=== PATIENT | male | born 1970 | race Caucasian/White ===

== ENCOUNTER 2024-03-12 06:15 | Day surgery (SDC) | payer OTHER, SELFPAY | END 2024-03-12 09:02 | disposition home or self-care (01) | LOC: GI 06:15 | PROVIDERS: ATTENDING PHYSICIAN Internal Medicine | DX: Z12.11 Encounter for screening for malignant neoplasm of colon (principal); D12.3 Benign neoplasm of transverse colon; K63.5 Polyp of colon; K64.8 Other hemorrhoids | CPT/HCPCS: 45385; 45380; 88305 ==

== ENCOUNTER → 2024-06-12 07:03 | Outpatient (REF) | payer OTHER, SELFPAY | LOC: HWRAD 07:03 | PROVIDERS: ATTENDING PHYSICIAN Internal Medicine | DX: E04.1 Nontoxic single thyroid nodule (principal); R63.4 Abnormal weight loss | CPT/HCPCS: 76536 ==

== ENCOUNTER → 2024-06-27 07:27 | Outpatient (REF) | payer OTHER, SELFPAY ==
[2024-06-27 07:56] VITALS: BP 113/67; BP_SYST 84
== END ==
LOC: RADI 07:27
PROVIDERS: ATTENDING PHYSICIAN Internal Medicine
DX: C73 Malignant neoplasm of thyroid gland (principal)
CPT/HCPCS: 88173; 10005

== ENCOUNTER 2024-08-28 08:51 | Inpatient (IN) | payer OTHER, SELFPAY ==
[2024-08-21 11:25] LABS: Hematocrit 43.7 % (39.0-52.0); Hemoglobin 15.4 g/dL (13.0-18.0); Mean Corp Hgb Conc. 35.2 g/dL (33.0-37.0); Mean Corpuscular Hgb 30.1 pg (27.0-31.0); Mean Corpuscular Volume 85.4 fL (80.0-94.0); Mean Platelet Volume 8.7 fL (7.4-10.4); Platelet Count 209 10^3/uL (130-400); Red Blood Cell Count 5.12 10^6/uL (4.70-6.10); Red Cell Dist. Width 12.4 % (11.5-14.5); White Blood Cell Count 4.9 10^3/uL (4.8-10.8)
[2024-08-21 11:34] LABS: APTT 26.1 Sec (23.4-35.0); PT 12.5 Sec (11.4-14.6)
[2024-08-21 12:50] LABS: ALT (SGPT) 34 U/L (0-50); AST (SGOT) 26 U/L (17-59); Albumin 5.2 g/dl (3.5-5.0); Alkaline Phosphatase 65 U/L (38-126); Blood Urea Nitrogen 14 mg/dl (9-20); Calcium 9.6 mg/dl (8.4-10.2); Carbon Dioxide 24 mmol/L (22-30); Chloride 106 mmol/L (98-107); Glucose 91 mg/dl (70-99); Potassium 4.3 mmol/L (3.5-5.1); Sodium 142 mmol/L (135-145); Total Bilirubin 1.1 mg/dl (0.2-1.3); Total Protein 7.7 g/dl (6.3-8.2); eGFR > 60.00
[2024-08-21 14:06] VITALS: BMI 23.2
[2024-08-28] VITALS (15 sets, daily range): BP systolic 109–129; BP diastolic 70–87; BMI 23.2
[2024-08-28] MEDS: NORMOSOL-R/PLASMALYTE-A 1000 IV (09:07)
[2024-08-28] MEDS: HEPARIN 5000 UNITS SC (09:08)
[2024-08-28] MEDS: NEURONTIN 300 MG PO (09:08)
[2024-08-28] MEDS: TYLENOL 1000 MG PO (09:08)
--- NOTE | 2024-08-28 11:57 | OR.RPT ---
Operative Report
Operative Report
DATE OF OPERATION: August 28, 2024
PREOPERATIVE DIAGNOSIS: Thyroid Cancer - C73
POSTOPERATIVE DIAGNOSIS: Same
SURGEON: Jose Alberto Barron M.D.
OPERATION: Total Thyroidectomy and Neck Dissection - 53713
ANESTHESIA: GET
ESTIMATED BLOOD LOSS: 5 cc
DRAINS: None
SPECIMEN: total thyroid and right level 6 paratracheal tissue
FINDINGS: right-sided isthmic thyroid tumor and right level 6 paratracheal tissue
COMPLICATIONS: None
PROCEDURE:
The patient was taken to the operating room and placed in the usual supine position. After adequate general endotracheal anesthesia was established, the patient�s neck was extended, prepped, and draped in the typical sterile fashion. A 4 cm
transcervical incision was made two fingerbreadths above the sternal notch. The skin incision was made with the #15 blade, which was taken through the skin into the subcutaneous tissue. The underlying platysma muscle was divided, and subplatysmal
flaps were created superiorly to the thyroid cartilage and inferiorly to the sternal notch. The strap muscles were identified and at the midline.
Attention was turned to the patient�s left thyroid lobe. The left thyroid lobe was mobilized medially. During this process, the left middle thyroid vein and inferior thyroid artery were dissected and ligated with Ligasure. Next, the left superior
pole was taken down by dissecting and transecting the superior pole vessels with a Ligasure. The left thyroid lobe was mobilized medially. During this process, the left recurrent laryngeal nerve was identified and preserved throughout its entire
course. The left superior and inferior parathyroid glands were identified and preserved. The left thyroid lobe with isthmus was resected off the trachea and sent to the pathology department.
Attention was turned to the patient�s right thyroid lobe. The right thyroid lobe was mobilized medially. During this process, the right middle thyroid vein and inferior thyroid artery were dissected and ligated with Ligasure. Next, the right
superior pole was taken down by dissecting and transecting the superior pole vessels with a Ligasure. The right thyroid lobe was mobilized medially. During this process, the right recurrent laryngeal nerve was identified and preserved throughout its
entire course. The right inferior parathyroid gland was identified and preserved. The right thyroid lobe with isthmus was resected off the trachea and sent to the pathology department.
At this time, the right neck dissection was performed. The tissue between the right carotid artery to the trachea into the anterior mediastinum was carefully dissected. The previously identified recurrent laryngeal nerve and parathyroid glands were
preserved. However, the right superior parathyroid gland was noted in the right level 6 paratracheal tissue specimen, which was dissected out, minced, and autotransplanted in the right SCM muscle. The remaining tissue was removed and sent to the
pathology department.
After obtaining adequate hemostasis, the strap muscle was approximated with #3-0 Vicryl in a running fashion, and platysma muscles were reapproximated with #3-0 Vicryl in an interrupted fashion, and the skin was approximated with #4-0 Monocryl in a
running subcuticular fashion. Steri-strips and sterile dressings were placed. The patient tolerated the procedure well. The final instrument, needle, and sponge counts were correct.
[2024-08-28] MEDS: SUBLIMAZE 50 MCG IV ×3 (12:23→13:36)
[2024-08-28] MEDS: D5/0.9% SODIUM CHLORIDE 1000 IV (15:19)
[2024-08-28 15:55] LABS: ALT (SGPT) 27 U/L (0-50); AST (SGOT) 31 U/L (17-59); Albumin 4.6 g/dl (3.5-5.0); Alkaline Phosphatase 72 U/L (38-126); Blood Urea Nitrogen 14 mg/dl (9-20); Calcium 8.7 mg/dl (8.4-10.2); Carbon Dioxide 25 mmol/L (22-30); Chloride 105 mmol/L (98-107); Estimated Creatinine Clearance > 125 ml/min; Glucose 117 mg/dl (70-99); Potassium 4.7 mmol/L (3.5-5.1); Sodium 139 mmol/L (135-145); Total Protein 7.2 g/dl (6.3-8.2); eGFR > 60.00
[2024-08-28] MEDS: TYLENOL 650 MG PO ×2 (17:09→20:23)
[2024-08-28] MEDS: ROXICODONE 5 MG PO (17:59)
[2024-08-28] MEDS: PRAVACHOL 40 MG PO (23:05)
[2024-08-28] MEDS: PEPCID 20 MG PO (23:05)
[2024-08-28] MEDS: TORADOL 10 MG IV (23:07)
[2024-08-29] MEDS: TYLENOL PO ×2 (00:17→05:27)
[2024-08-29 03:15] VITALS: BP 114/66
[2024-08-29] MEDS: D5/0.9% SODIUM CHLORIDE 1000 IV (05:27)
[2024-08-29] MEDS: SYNTHROID 137 MCG PO (05:28)
[2024-08-29] MEDS: TYLENOL 650 MG PO ×2 (05:48→11:35)
[2024-08-29 07:55] VITALS: BP 131/82
[2024-08-29 08:08] LABS: ALT (SGPT) 24 U/L (0-50); AST (SGOT) 22 U/L (17-59); Albumin 4.5 g/dl (3.5-5.0); Alkaline Phosphatase 58 U/L (38-126); Blood Urea Nitrogen 11 mg/dl (9-20); Calcium 8.5 mg/dl (8.4-10.2); Carbon Dioxide 24 mmol/L (22-30); Chloride 105 mmol/L (98-107); Estimated Creatinine Clearance > 125 ml/min; Glucose 134 mg/dl (70-99); Potassium 4.1 mmol/L (3.5-5.1); Sodium 138 mmol/L (135-145); Total Bilirubin 0.8 mg/dl (0.2-1.3); Total Protein 6.9 g/dl (6.3-8.2); eGFR > 60.00
--- NOTE | 2024-08-29 09:19 | CM ---
CM reviewed medical records. Patient is independent with all needs. Patient lives with .
PLAN: home no needs.
--- NOTE | 2024-08-29 14:14 | W.DS.TRANS ---
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
-
Discharge Instructions:
Discharge Diagnosis/Procedures Thyroid cancer
Diet Regular
Activity As tolerated,No strenuous activity
Driving Restrictions no driving for 4-5 days
Bathing Restrictions OK to Shower
Instructions:
Stand-Alone Forms:
Changes to Home Medications: Yes
Discharge Medications:
DC Medications w/original date entered in [employer]
cholecalciferol (vitamin D3) 125 mcg (5,000 unit) tablet 1,000 unit PO HS 06/21/12
pravastatin 40 mg tablet 40 mg PO HS 06/21/12
escitalopram oxalate 5 mg tablet (Lexapro) 5 mg PO HS 06/27/24
famotidine 20 mg tablet 20 mg PO HS 06/27/24
lysine 500 mg capsule 500 mg PO 1XD 08/28/24
Home Medication Changes
Pending Results: No
== END 2024-08-29 15:15 | disposition home or self-care (01) | DRG 627 ==
LOC: 2 SOUTH 08:51
PROVIDERS: ADMITTING PHYSICIAN Surgery; FAMILY PHYSICIAN Internal Medicine
PROC: 07T10ZZ Resection of Right Neck Lymphatic, Open Approach (ICD-10-PCS; 2024-08-28)
PROC: 0GTK0ZZ Resection of Thyroid Gland, Open Approach (ICD-10-PCS; 2024-08-28)
DX: C73 Malignant neoplasm of thyroid gland (principal)
CPT/HCPCS: 88307; 88311; 36415; 80053; 85027; 85610; 85730; 93005; C1776

== ENCOUNTER → 2024-10-24 15:34 | Outpatient (REF) | payer BC, SELFPAY ==
[2024-10-26 16:19] LABS: Thyroglobulin 0.3 ng/mL (1.3-31.8); Thyroglobulin Antibodies <1.5 IU/mL (0.0-4.0)
== END ==
LOC: REG 15:34
PROVIDERS: ATTENDING PHYSICIAN Internal Medicine Endocrinology, Diabetes & Metabolism; FAMILY PHYSICIAN Internal Medicine
DX: C73 Malignant neoplasm of thyroid gland (principal)
CPT/HCPCS: 36415; 84432; 86800

== ENCOUNTER 2024-12-29 15:34 | Inpatient (IN) | payer BC, SELFPAY ==
[2024-12-29] VITALS (9 sets, daily range): BP systolic 110–151; BP diastolic 61–95; BMI 25.6; BMI 24.5
[2024-12-29 09:26] LABS: Glucose - Point of Care 99 mg/dl (70-99)
--- NOTE | 2024-12-29 09:46 | ED.CVA ---
History of Present Illness
<FER Ortiz - Last Filed: 12/29/24 14:25>
General
Chief Complaint: CVA/TIA Symptoms
Source: other (Friend)
Exam Limitations: none
Time Seen by Provider: 12/29/24 09:33
Nursing documentation reviewed up to this point in time: agreed with
Onset of Stroke Symptoms
Onset of symptoms known: No
Time pt last seen normal is known: No
History of Present Illness
History of Present Illness:
Patient is a 54-year-old male brought by friend for change mental status. Friend reports patient was in a cold plunge at 60 degree temperature for 7 minutes at his house. Friend reports about 5 minutes after patient was confused asking strange
questions could not remember things. Patient presents still confused. He is awake alert he is able to answer questions but does not remember getting out of the cold plunge or getting dressed. He is confused to the year, date of month.
He denies any headache. I did speak to over over the phone who is on her way. He does have a history of thyroid cancer and had thyroid removed this summer by Dr. Jose Alberto Barron. He is scheduled for radioactive iodine therapy this week. does
report patient has a history of SVT yrs ago and has anxiety and takes antianxiety medicine she believes only at nighttime.
Past History
<FER Ortiz - Last Filed: 12/29/24 14:25>
Past History
ED Past Medical History: Hypercholesterolemia and Other (sleep apnea (Nuvigil))
ED Past Surgical History: Tonsilectomy
Social History
Tobacco: Former smoker
Alcohol: Occasional
Drug: None
Personal:
Living: with family
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
Phy Exam
<FER Ortiz - Last Filed: 12/29/24 14:25>
General Physical Exam
General Presentation: no apparent distress
General age: appears stated age
General Skin: warm and dry
General Habitus: normal
General Mental: tearful
General Hydration: appears well hydrated
Cardiovascular Exam
Cardiovascular Exam: regular rate/rhythm, no murmur and normal peripheral pulses
Pulmonary Exam
Pulmonary Exam: lungs clear and no respiratory distress
Neurological Exam
Neurological Exam: alert, oriented x3, no motor deficits, no sensory deficits and speech normal
[place] Coma Scale
Eye Opening: Spontaneous
Verbal Response: Confused
Motor Response: Obeys Commands
GCS Total Score: 14
Musculoskeletal Exam
Musculoskeletal Exam: full ROM
Skin Exam
Skin Exam: normal color and warm/dry
Psychiatric Exam
Psychiatric Exam: normal mood/affect
Course
<FER Ortiz - Last Filed: 12/29/24 14:25>
Orders/Labs/Results
Orders:
Orders
12/29/24 09:45
Electrocardiogram (*1) Stat
Reason for Study: Other
Other Reason for Exam: neuro symptoms
CT Head W/o Iv Contrast Urgent
Comment:
Reason For Exam: sudden change in ms
Cardiac Monitoring- Treatment ONCE
EKG- Treatment ONCE
12/29/24 09:48
Complete Blood Count/With Diff Urgent
Comprehensive Metabolic Panel Urgent
TSH Reflex To Free T4 Urgent
12/29/24 10:55
PSYCHIATRY CONSULT Urgent
Consulting Provider: Luly Liu
Was physician already notified: Yes
12/29/24 11:51
Drug Screen, Urine [Urine Drug Abuse Screen] Urgent
Date Specimen was Collected: 12/29/24
Time Specimen was Collected: 11:50
UA Reflex to Culture [Urinalysis Reflex To Culture] Urgent
Date Specimen was Collected: 12/29/24
Time Specimen was Collected: 11:50
Urine Microscopic Reflex Cult Urgent
12/29/24 12:13
0.9% Sodium Chloride 1000 ml [Nss] 1,000 ml IV BOLUS
Abnormal Lab Results
12/29/24 12/29/24
09:48 11:51
Albumin 5.1 H g/dl
(3.5-5.0)
Urine Ketones 2+ A
(Negative)
Urine Bacteria (Reflex) Few A
(Negative)
Urine Albumin (Reflex) 1+ A
(Neg - Trace)
12/29/24 09:48
12/29/24 09:48
Vital Signs
Initial and Last Documented VS:
Initial Vital Signs
Temp Pulse Resp BP Pulse Ox
98.4 F 69 16 146/95 100
12/29/24 09:21 12/29/24 09:21 12/29/24 09:21 12/29/24 09:21 12/29/24 09:21
Last Documented Vital Signs
Temp Pulse Resp BP Pulse Ox
98.4 F 74 14 135/89 99
12/29/24 09:21 12/29/24 13:00 12/29/24 13:00 12/29/24 12:00 12/29/24 13:00
Commercial Announcer consulted with Physician
Commercial Announcer consulted with physician?: Yes
Name of Physician Consulted: Gin
<Rohit Greenfield, DO - Last Filed: 12/29/24 10:48>
Orders/Labs/Results
Orders:
Orders
12/29/24 09:45
Electrocardiogram (*1) Stat
Reason for Study: Other
Other Reason for Exam: neuro symptoms
CT Head W/o Iv Contrast Urgent
Comment:
Reason For Exam: sudden change in ms
Cardiac Monitoring- Treatment ONCE
EKG- Treatment ONCE
12/29/24 09:48
Complete Blood Count/With Diff Urgent
Comprehensive Metabolic Panel Urgent
TSH Reflex To Free T4 Urgent
12/29/24 10:55
PSYCHIATRY CONSULT Urgent
Consulting Provider: Luly Liu
Was physician already notified: Yes
12/29/24 11:51
Drug Screen, Urine [Urine Drug Abuse Screen] Urgent
Date Specimen was Collected: 12/29/24
Time Specimen was Collected: 11:50
UA Reflex to Culture [Urinalysis Reflex To Culture] Urgent
Date Specimen was Collected: 12/29/24
Time Specimen was Collected: 11:50
Urine Microscopic Reflex Cult Urgent
12/29/24 12:13
0.9% Sodium Chloride 1000 ml [Nss] 1,000 ml IV BOLUS
Abnormal Lab Results
12/29/24 12/29/24
09:48 11:51
Albumin 5.1 H g/dl
(3.5-5.0)
Urine Ketones 2+ A
(Negative)
Urine Bacteria (Reflex) Few A
(Negative)
Urine Albumin (Reflex) 1+ A
(Neg - Trace)
12/29/24 09:48
12/29/24 09:48
Vital Signs
Initial and Last Documented VS:
Initial Vital Signs
Temp Pulse Resp BP Pulse Ox
98.4 F 69 16 146/95 100
12/29/24 09:21 12/29/24 09:21 12/29/24 09:21 12/29/24 09:21 12/29/24 09:21
Last Documented Vital Signs
Temp Pulse Resp BP Pulse Ox
98.4 F 74 14 135/89 99
12/29/24 09:21 12/29/24 13:00 12/29/24 13:00 12/29/24 12:00 12/29/24 13:00
<FER Ortiz - Last Filed: 12/29/24 14:25>
MDM/Problems Addressed
Differential Diagnosis Includes:
Not limited to stroke, transient global amnesia, panic attack,
MDM/Problems Addressed:
As documented patient is a 53-year-old male who presented with change in bowel status. Patient does not recall getting into this cold plunge however about 5 minutes after getting out of friend reports patient was very confused could not remember
things. He presented very tearful crying confused. He is confused to year and time. He is asked and repeating multiple questions.
He however has no focal deficits clear speech CAT scan done and negative. Case reviewed with Dr. Greenfield who evaluated patient labs unremarkable.
Patient does have a history of generalized anxiety disorder as well as depression. reports patient lost his job in October and has been depressed since.
He did recently have thyroidectomy and is on thyroid medication his TSH is normal.
Case d/c with psychiatry who did evaluate patient. In addition neuro consult placed will see patient.
1415: Pt eval by neuro who recommends admission for further workup brain MRI
Chronic conditions affecting care:
Generalized anxiety disorder, recent thyroidectomy 2 months ago
<FER Ortiz - Last Filed: 12/29/24 14:25>
*Radiology
Radiology exam reviewed: radiology read reviewed
*Pulse Oximetry
SaO2: 100
Oxygen Mode of Delivery: Room air
Patient hypoxic: no
*Critical Care Note
Total Time (30-74mins, 75-104mins- exclusive of procedures): Not Applicable
<FER Ortiz - Last Filed: 12/29/24 14:25>
Patient Management
Discussion with other providers: Senior Product Manager (Psychiatry and neurology)
ED Attending Note
<FER Ortiz - Last Filed: 12/29/24 14:25>
-
Portions of this chart may have been created with voice recognition software.� Occasional wrong word or��sound alike� substitutions may have occurred due to the inherent limitations of voice recognition software.
<Rohit Greenfield, DO - Last Filed: 12/29/24 10:48>
ED Attending Note
Patient seen and examined by attending physician: Yes
I performed the substantive portion of visit, reviewed & personally made and approve the management plan that is documented in note by myself or GISELL.: Yes
ED Attending Note:
Seen with [employer] examined independently 54-year-old male recent thyroidectomy also stress related to job loss, presents with mental status change after a cold bath, nonfocal exam he is tearful has some short-term memory loss which resolves, looks to be
all stress been on meds through his PCP labs noted TSH pending CT noted
Discharge Plan
Departure
Patient Disposition: Admit
Date of Disposition: 12/29/24
Time of Disposition: 14:23
Admit to: Med/Surg
Admit to doctor: hospitalist
Presentation/result/management discussed w/ accepting MD/DO: Hospitalist
Patient with high blood pressure during this ER visit?: Yes
Condition: Fair
Covid-19: Not Applicable
Discharge Problem:
Acute alteration in mental status
Prescriptions:
No Action
pravastatin 40 MG tablet
40 mg PO HS
cholecalciferol (vitamin D3) 5,000 UNIT tablet
1,000 unit PO HS
escitalopram oxalate [Lexapro] 5 mg Tablet
5 mg PO HS
famotidine 20 mg Tablet
20 mg PO HS
lysine 500 mg Capsule
500 mg PO 1XD
Referrals:
Nehemiah Hernandez MD [Family Provider, Internal Medicine]
Interventions
Interventions:
*Risk Screen - Suicide Last Done: 12/29/24 09:46
*General Assessment Last Done: 12/29/24 09:46
ED- Pulmonary Assessment Last Done: 12/29/24 10:32
ED- Neurological Assessment Last Done: 12/29/24 10:22
ED- Cardiac Assessment Last Done: 12/29/24 10:33
Discharge Date and Time
Print Language: ALBANIAN
[2024-12-29 09:57] LABS: Hematocrit 45.0 % (39.0-52.0); Hemoglobin 15.9 g/dL (13.0-18.0); Mean Corp Hgb Conc. 35.3 g/dL (33.0-37.0); Mean Corpuscular Volume 84.0 fL (80.0-94.0); Nucleated Red Blood Cells % 0 % (-); Platelet Count 199 10^3/uL (130-400); Red Cell Dist. Width 12.2 % (11.5-14.5)
[2024-12-29 10:07] LABS: ALT (SGPT) 23 U/L (0-50); AST (SGOT) 25 U/L (17-59); Albumin 5.1 g/dl (3.5-5.0); Alkaline Phosphatase 79 U/L (38-126); Blood Urea Nitrogen 20 mg/dl (9-20); Calcium 9.5 mg/dl (8.4-10.2); Carbon Dioxide 27 mmol/L (22-30); Chloride 101 mmol/L (98-107); Estimated Creatinine Clearance 97 ml/min; Glucose 95 mg/dl (70-99); Potassium 4.5 mmol/L (3.5-5.1); Sodium 136 mmol/L (135-145); Total Protein 8.0 g/dl (6.3-8.2); eGFR > 60.00
[2024-12-29 12:07] LABS: Urine Character Clear (Clear)
[2024-12-29 12:13] LABS: Urine Red Blood Cell 0-2 /HPF (0-2); Urine Squamous Cell 0-2 /LPF (Few); Urine White Cell 0-2 /HPF (0-5)
[2024-12-29] MEDS: NSS 1000 IV (13:01)
--- NOTE | 2024-12-29 13:12 | CON.NEURO ---
Consultation
Order
Date of Consultation: 12/29/24
Requesting Provider: Yessica Young
Reason for Consult: AMS
Neurology Consultation Note.
HPI: This is a 54-year-old man who presented to [facility] on 12/29/2024 with encephalopathy.
According to patient's son, Mr. Sheridan went to his friend's house this morning and participated in a cold water plunge for seven minutes. After getting out, drying off, and having coffee, he began asking concerning questions such as 'Do I sell
my car?' and 'Have I got home?' His friend became worried that he was having a stroke and brought him to the hospital. The patient reports he does not remember much after the cold plunge and specifically does not remember getting in the bathtub. He
does remember going to his friend's house either. No reports of headaches, change in vision, strength, vertigo. He states that he had 'mal petit 'spells that he was treated for around 20-30 years ago. The above was not confirmed by patient's
.
According to patient's spouse Mr. Mr. Sheridan is scheduled for radioactive iodine treatment on .
ER VS: 146/95, 69, afebrile
EKG: NSR, QTcB Int : 459 ms
PDMP: Alprazolam 0.25 Mg 10 tablets filled in on 10/17/2024
Labs: Unremarkable CBC, comp, UA, negative urine tox,
CT head wo contrast�no acute abnormalities
PMH: Thyroid papillary carcinoma, DLP, ROME, bruxism, RLS, allergic rhinitis, KORI, vitamin D deficiency
PSH: Thyroidectomy, tonsillectomy, septoplasty, turbinectomy
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
FH: Not contributory to current presentation
All:NKDA
ROS: General: Positive for recent cold, negative for fever.
HEENT: Negative for vision changes, negative for headache.
Gastrointestinal: Positive for bloating, negative for nausea, vomiting, diarrhea.
Genitourinary: Positive for urinary urgency.
Neurological: Negative for headache.
General: Well developed. In no acute distress.
Cardio: Regular rate and rhythm without murmur. Extremities are without cyanosis or edema.
Neuro:
Mental Status: Alert, oriented to person, age, date of , year. Did not know the month or date. Impaired attention and processing time. Follows complex requests. Nonfluent. Delayed recall�0 out of 3
Cranial Nerves: Pupils are equally round and reactive to light. EOMs full. Visual bowling full to confrontation. No ptosis. No nystagmus. V1-V3 intact to light touch and pinprick bilaterally, symmetric. Face symmetric. Normal hearing AU. The
palate elevated well. SCMs and traps 5/5. Tongue midline. No dysarthria.
Motor: Normal bulk and tone. No pronator or arm drift. Strength 5/5 throughout. No clonus.
Reflexes: 2+ throughout the upper extremities and knees. 2/2 in AJs. Plantar responses flexor bilaterally.
Sensory: Normal pinprick, vibration and JPS.
Coordination: No dysmetria or tremor.
Gait: deferred
Assessment and Plan:
I. Acute encephalopathy. Differential diagnosis includes vascular versus
II. Papillary thyroid carcinoma
III.ROME
- Seizure precautions
- Please check TFTs, vitamin B12, B1.
- Brain MRI with and without gadolinium
- Routine EEG
- Will follow
I personally reviewed all radiology and labs along with past medical records pertinent to current medical problems. Total time spent in patient care is 60 minutes.
Thank you for allowing us to participate in the care of this patient. We will continue to follow. Please do not hesitate to contact us with any questions or concerns.
Subjective/Objective
Subjective Data
Date of Service: December 29, 2024
Objective Data
Vital Signs
Temp Pulse Resp BP Pulse Ox
36.9 C 73 16 127/94 99
12/29/24 09:21 12/29/24 10:21 12/29/24 09:34 12/29/24 09:34 12/29/24 10:32
Lab Results
12/29/24 09:48
12/29/24 09:48
Sodium 136 mmol/L (135-145) 12/29/24 09:48
Potassium 4.5 mmol/L (3.5-5.1) 12/29/24 09:48
BUN 20 mg/dl (9-20) 12/29/24 09:48
Glucose 95 mg/dl (70-99) 12/29/24 09:48
Calcium 9.5 mg/dl (8.4-10.2) 12/29/24 09:48
Ur Buprenorphine Negative (Negative) 12/29/24 11:51
Patient Allergies
grass pollen Allergy (Verified 08/28/24 09:01)
congestion
house dust mite Allergy (Verified 08/28/24 09:01)
congestion
mold Allergy (Verified 08/28/24 09:01)
congestion
pollen extracts Allergy (Verified 08/28/24 09:01)
congestion
Medications
-
Home Medications
�Medication �Instructions �Recorded
cholecalciferol (vitamin D3) 125 1,000 unit PO HS 06/21/12
mcg (5,000 unit) tablet
pravastatin 40 mg tablet 40 mg PO HS 06/21/12
escitalopram oxalate 5 mg tablet 5 mg PO HS 06/27/24
(Lexapro)
famotidine 20 mg tablet 20 mg PO HS 06/27/24
lysine 500 mg capsule 500 mg PO 1XD 08/28/24
Vital Signs and Labs
-
Vital Signs and Labs:
Vital Signs
Temp Pulse Resp BP Pulse Ox
36.9 C 73 16 127/94 99
12/29/24 09:21 12/29/24 10:21 12/29/24 09:34 12/29/24 09:34 12/29/24 10:32
Lab Results
12/29/24 09:48
12/29/24 09:48
Sodium 136 mmol/L (135-145) 12/29/24 09:48
Potassium 4.5 mmol/L (3.5-5.1) 12/29/24 09:48
BUN 20 mg/dl (9-20) 12/29/24 09:48
Glucose 95 mg/dl (70-99) 12/29/24 09:48
Calcium 9.5 mg/dl (8.4-10.2) 12/29/24 09:48
Ur Buprenorphine Negative (Negative) 12/29/24 11:51
Home Medications
-
Home Medications
cholecalciferol (vitamin D3) 125 mcg (5,000 unit) tablet 1,000 unit PO HS 06/21/12
pravastatin 40 mg tablet 40 mg PO HS 06/21/12
escitalopram oxalate 5 mg tablet (Lexapro) 5 mg PO HS 06/27/24
famotidine 20 mg tablet 20 mg PO HS 06/27/24
lysine 500 mg capsule 500 mg PO 1XD 08/28/24
--- NOTE | 2024-12-29 14:20 | CON.MD ---
Consultation - Medical
-
54 yr old M w/ PMH of PSVT, HCL, HLD, KORI, GERD presenting to ED due to change in mental status this AM after a cold plunge with a friend. As per , pts friend messaged her to say pt needed to go to ED because he was suddenly confused - pt was
wandering into closets, did not know where or when he was, was progressively more confused. On arrival to ED pt reported to remain amnestic and confused. Psychiatry consulted due to concerns of multiple significant stressors preceeding this event
and concerns of contributring or underlying depression/anxiety.
Pt seen at bedside, son & also present. Pt was pleasant on approach, good eye contact - did not appear perturbed or very worried by not knowing why he was at a hospital. Noted to spontaneously keep asking various orientation questions to
family ('what date is it? what happened? what's today's date?' etc). was giving history and reminded pt of recent firing from job (6 weeks ago), he did not appear to remember nor appear excessively distressed by this. also mentioned recent
thyroid cancer and surgery, pt responded with - 'Is that why I have a scar here?'. Again, did not appear excessively distressed, but he was observed to be touching the scar and pt said there was some vague memory relating to the scar but nothing
further remembered.
Spoke to pts outside of room as pt was calm, but did appear to be progressively more overwhelmed by exess of information. As per , pt does have a history of anxiety for many years - is currently on lexapro prescribed by PCP, has been on
this for quite some time and with fair benefit described. As per , even with lexapro pt experiencing anxiety with overthinking, excessive worrying, internalizing stressors, etc and this does seem to impact work to a degree - will work for about
5 yrs at a job, will then move on to a different job due to becoming overwhelmed by various stressors at work. However, this is always at his volition, not situations of crisis but rather gradually becoming more frustrated and then looking for a new
job after about 5 yrs time. 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 In Apr 2024 was placed on performance review for interpersonal issues relating to communication styles (or something of that nature), pt had never been placed
on a performance review and had difficulty with this - anxiety worsened, was disruptive to daily life and pt did start to see a therapist which seems to have helped after some time. does report there were issues with pts boss & HR which
contributed to this work situation being more stressful, despite pts efforts to make improvements at work. To note, pt also was diagnosed with papillary thyroid cancer around this same time - difficult to tell to what degree the increase in anxiety
at this time also was due to physiological factors, but likely played a part at least to some degree.
As per , pt had thyroid removed around end of October 2024 - which was also around the same time that he lost his job. Next week is supposed to start radioactive iodine as some thyroid cells were found in surrounding lymph nodes, though he is
expected to do well and his particular cancer is not an aggressive form. reports that about 6 weeks ago pt did indeed struggle, was feeling anxious and distressed, was very tearful, had difficulty with processing or even talking about losing
job. As reported above however, he has been seeing a therapist and it seems that his is also a good emotional support for him - after a few weeks pt started doing better, was able to tell kids about losing job, was able to start looking for a
new job. Affect described to consistently improve over the past 4 weeks, pt was in good spirits, would at times feels sad or worried about the recent events but described as fairly appropriate and not acutely disruptive as during the first 2 weeks.
Did not appear distressed or depressed.
reports that yesterday pt was at a conference that lasted longer than expected but seemed his normal self when he came home. Evening was uneventful. She does note that when he was sleeping he was 'kicking his legs a lot, like a whole lot'
which she noticed because it is unusual for him to do. Nothing else of note however. No concerns when he woke up, no concerns reported by friend either until after the dried off from cold plunge (which reports was 60 degree water in outdoor
pool this AM, stayed in water for 7 minutes).
Past psych: on lexapro 5mg which seems to be helping, along with outpatient therapy. PCP started low dose prn ativan about 1-2 months ago, no indication of misuse or abuse reported by . No inpatient hx. Lexapro from PCP
FH: 2 daughters with anxiety/depression (1 daughter also with ASD & hx of 'dissociation', described as mild and not a dissociative disorder but rather anxious derealization/dissociation which was situational and resolved)
SH: Lives with , has 3 kids (late teens to early 20s), good relationship with all. Was working as financial data analyst for [employer], received 3 months severance, works and family has savings - as per , they are not in financial duress so
this is not currently an acute stressor. 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
D&A: none significant
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
(+possibly adjustment d/o with depressive sxs when first lost job but none current)
MSE: male, good eye contact, speech is nl rate & rhythm. Mood is OK, affect is pleasant and appropriate. Thought process linear/logical though becomes disjointed when pt suddenly asks orientation questions. No evidence of SI/HI/AVH/delusions.
Oriented to name, to being in hospital, none else. Memory not formally tested. Insight/judgement moderate.
No acute psychiatric intervention warranted at this time - would wait to see what neurology's thoughts are, however based on current information pts hx is not consistent with a typical dissociative amnesia or to be due to severe anxiety or
depression. Although he certainly struggled when first diagnosed with cancer and losing his job, based on his hx he is reported to have been dealing with this fairly well and there is no indication of worsening anxious distress or worsening extrenal
stressors which could potentially trigger dissociative amnesia. I did discuss with his that its possible that pts was perhaps externally doing well but was internalizing anxious distress to such a degree that it suddenly triggered this amnesia,
however although this is not impossible, it's very unlikely as there would generally be at least some signs of this.
Did discuss with however that regardless of neurology findings or other potential causes, pt did indeed go through a great deal of stress and should make sure to continue with his regular therapist - in particular after today, I would recommend
that they try to find an in person therapist (current is virtual) and make sure that pt continues processing recent events appropriately.
Continue lexapro & prn ativan, would not make changes as no clear indication for this based on hx.
[2024-12-29 14:56] LABS: Magnesium 2.4 mg/dl (1.6-2.3)
--- NOTE | 2024-12-29 15:08 | HPS.HSE ---
Family Physician
-
Family Physician: Nehemiah Hernandez
Chief Complaint
-
AMS
History of Present Illness
54-year-old male with papillary thyroid cancer s/p total thyroidectomy and neck dissection (August 2024) on radioactive iodine, KORI on CPAP, dyslipidemia, iatrogenic hypothyroidism, GERD, H/O paroxysmal SVT is presenting to the hospital after being
brought in by his friend due to a change in mental status. History obtained by the friend in the ED, patient was performing a cold plunge today and 60 degree temperature where he was submerged for 7 minutes. 5 minutes after getting out of the cold
water he became confused and was asking strange questions. Was noted to have confusion at time of arrival to the ED, patient unable to remember getting out of the cold plunge or getting dressed. Denies any headache, chest pain, dyspnea, GI or
urinary issues. Upon arrival to the ED was AFVSS. Labs were completely unremarkable, TSH in normal range. UDS without significant findings. CT head was unremarkable for any acute findings. ECG showed incomplete RBBB though otherwise NSR and no
signs of Ordonez waves. Evaluated by psychiatry who recommended to continue Lexapro and as needed Ativan, lower suspicion for acute psychiatric phenomenon leading to this presentation.
Medical History
Past Medical History
Past Medical History: Reports Other
Additional Past Medical History:
Papillary thyroid cancer on radioactive iodine
Iatrogenic hypothyroidism
KORI on CPAP
Dyslipidemia
GERD
History of paroxysmal SVT
Past Surgical History: Reports Other
Additional Past Surgical History:
Total thyroidectomy and neck dissection
Social History
Tobacco: Non-smoker
Alcohol: Occasional
Drug: None
Personal:
Living: With Family
Employment: Not Employed
Family History
Family History: Not pertinent
Allergies / Home Medications
Allergies reflects when Allergies were last updated in [employer]
Home Medications with original date entered in [employer]
Allergy/Medication List:
Allergies
Allergy/AdvReac Type Severity Reaction Status Date / Time
grass pollen Allergy congestion Verified 08/28/24 09:01
house dust mite Allergy congestion Verified 08/28/24 09:01
mold Allergy congestion Verified 08/28/24 09:01
pollen extracts Allergy congestion Verified 08/28/24 09:01
Home Medications
cholecalciferol (vitamin D3) 125 mcg (5,000 unit) tablet 1,000 unit PO QPM 06/21/12
pravastatin 40 mg tablet 40 mg PO HS 06/21/12
escitalopram oxalate 10 mg tablet (Lexapro) 10 mg PO HS 12/29/24
famotidine 20 mg tablet (Pepcid) 20 mg PO HS 12/29/24
levothyroxine 137 mcg tablet (Synthroid) 137 mcg PO DAILY 12/29/24
Review of Systems
-
History Source: Patient
A 12 point ROS was completed and negative except as noted: Yes
Constitutional: Reports No Symptoms
EENT: Reports No Symptoms
Respiratory: Reports No Symptoms
Cardiac: Reports No Symptoms
Abdomen/GI: Reports No Symptoms
: Reports No Symptoms
Musculoskeletal: Reports No Symptoms
Skin: Reports No Symptoms
Neurological: Reports See HPI
Endocrine: Reports No Symptoms
Hematologic/Lymphatic: Reports No Symptoms
Psych: Reports See HPI
Physical Exam
Vital Signs
Vital Signs
Temp Pulse Resp BP Pulse Ox
98.4 F 85 16 130/87 98
12/29/24 09:21 12/29/24 14:56 12/29/24 14:30 12/29/24 14:00 12/29/24 14:56
Physical Exam
General: Well Developed, Well Nourished and No Apparent Distress
HEENT: NormoCephalic, Anicteric, Moist mucous membranes and Atraumatic
Respiratory: Clear and Non Labored Respirations
Cardiac: S1/S2 and Regular Rhythm; No Murmur, Rub, Gallop or Peripheral Edema
GI: Soft, Non Tender, Non Distended and Normal Bowel Sounds
Musculoskeletal: No Clubbing, No Cyanosis and No Edema
Skin: Warm and Dry; No Rash
Neuro: AO x 3, Nonfocal/grossly intact and Cranial Nerves Intact; No Facial Droop or Tremors
Psych: Calm
Laboratory Results
-
12/29/24 09:48
12/29/24 09:48
Laboratory Results
Total Bilirubin 0.9 mg/dl (0.2-1.3) 12/29/24 09:48
AST 25 U/L (17-59) 12/29/24 09:48
ALT 23 U/L (0-50) 12/29/24 09:48
Alkaline Phosphatase 79 U/L (38-126) 12/29/24 09:48
Data Reviewed
-
CT Scan: Report Reviewed by me and Discussed with Physician (neurology)
Lab Data: Labs Reviewed by me and Discussed with Patient
Impression/Plan
-
#Altered mental status
#Suspected transient global amnesia
- Suspect transient global amnesia provoked by 7-minute exposure to cold water; lower suspicion for CVA or seizure
- Symptoms started within minutes of getting out of the water; reports of cold exposure causing TGA
- No abnormal metabolic findings, UDS was without positive findings
- Evaluated by psych, low suspicion for acute psychiatric condition
- Will consult neurology for consideration of MRI
- Follow-up bedside EEG report
- Monitor neurologic status and temperature
#Papillary thyroid cancer
#S/p total thyroidectomy and neck dissection
#Iatrogenic hypothyroidism
- Follows with Dr. Jose Alberto Barron, underwent surgical resection in August 2024
- Remains on radioactive iodine therapy with next planned session this upcoming week
- Currently on thyroid replacement regimen with levothyroxine 137 mcg daily
- Do not suspect presenting symptoms related to thyroid
#KORI on CPAP
- No known history of pulmonary hypertension
- Will continue with CPAP nightly while here
#GERD
- Continue nightly famotidine
- No history of erosive esophagitis or Donnelly's
#Dyslipidemia
- No ASCVD history, Home meds include moderate intensity statin
#Anxiety
- Continue with Lexapro and as needed Ativan Home regimen
#H/O paroxysmal SVT
- Not currently on any AVN blockade, no history of AF or AFL so not on AC
- Monitor on telemetry here
Diet: Regular
DVT prophylaxis: SCDs
CODE STATUS: Full code
Disposition: Admit to telemetry
[2024-12-29 15:47] LABS: Vitamin B12 652 pg/ml (239-931)
--- NOTE | 2024-12-29 16:10 | CM ---
Patient seen at bedside with in ED. Patient stated that he lives in a 2 story home with . Patient has a CPAP from [facility] and his PCP is Dr. Hernandez. Patient uses the [facility] in [place] on [address]. Patient plan is for discharge
home with his . CM will continue to follow for discharge planning needs.
Plan; home with no needs pending medical treatment plan
[2024-12-29] MEDS: VITAMIN D3 (cholecalciferol) 125 MCG PO (17:25)
[2024-12-29] MEDS: LEXAPRO 10 MG PO (21:34)
[2024-12-29] MEDS: PRAVACHOL 40 MG PO (21:34)
[2024-12-29] MEDS: PEPCID 20 MG PO (21:34)
[2024-12-30] MEDS: ROBITUSSIN 100 MG PO (03:26)
[2024-12-30 03:27] VITALS: BP 110/69
[2024-12-30] MEDS: SYNTHROID 137 MCG PO (06:13)
[2024-12-30 07:00] VITALS: BP 124/70
[2024-12-30 07:50] LABS: Hematocrit 42.0 % (39.0-52.0); Hemoglobin 14.5 g/dL (13.0-18.0); Mean Corp Hgb Conc. 34.5 g/dL (33.0-37.0); Mean Corpuscular Volume 84.3 fL (80.0-94.0); Nucleated Red Blood Cells % 0 % (-); Platelet Count 197 10^3/uL (130-400); Red Cell Dist. Width 12.3 % (11.5-14.5)
[2024-12-30 08:17] LABS: Blood Urea Nitrogen 13 mg/dl (9-20); Calcium 9.3 mg/dl (8.4-10.2); Carbon Dioxide 28 mmol/L (22-30); Chloride 104 mmol/L (98-107); Estimated Creatinine Clearance 110 ml/min; Glucose 96 mg/dl (70-99); Magnesium 2.4 mg/dl (1.6-2.3); Potassium 4.4 mmol/L (3.5-5.1); Sodium 140 mmol/L (135-145); eGFR > 60.00
--- NOTE | 2024-12-30 10:23 | CM ---
Patient seen at bedside with Lluy
MRI ordered
per hospitalist potential dc today
PLAN: home, no needs
to transport
[2024-12-30 11:00] VITALS: BP 126/69
--- NOTE | 2024-12-30 11:52 | W.PN.HOSP.TC ---
Today's Communication/Plan
-
Follow-up EEG and MRI
Neurochecks
Likely discharge within next 24 hours
Assessment / Plan
Assessment / Plan
#Altered mental status
#Suspected transient global amnesia
- Suspect transient global amnesia provoked by 7-minute exposure to cold water; lower suspicion for CVA or seizure
- Symptoms started within minutes of getting out of the water; reports of cold exposure causing TGA
- No abnormal metabolic findings, UDS was without positive findings
- Evaluated by psych, low suspicion for acute psychiatric condition
- Follow-up bedside EEG report and MRI
- Monitor neurologic status and temperature
#Papillary thyroid cancer
#S/p total thyroidectomy and neck dissection
#Iatrogenic hypothyroidism
- Follows with Dr. Jose Alberto Barron, underwent surgical resection in August 2024
- Remains on radioactive iodine therapy with next planned session this upcoming week
- Currently on thyroid replacement regimen with levothyroxine 137 mcg daily
- Do not suspect presenting symptoms related to thyroid
#KORI on CPAP
- No known history of pulmonary hypertension
- Will continue with CPAP nightly while here
#GERD
- Continue nightly famotidine
- No history of erosive esophagitis or Donnelly's
#Dyslipidemia
- No ASCVD history, Home meds include moderate intensity statin
#Anxiety
- Continue with Lexapro and as needed Ativan Home regimen
#H/O paroxysmal SVT
- Not currently on any AVN blockade, no history of AF or AFL so not on AC
- Monitor on telemetry here
Diet: Regular, low iodine
DVT prophylaxis: SCDs
CODE STATUS: Full code
Disposition: Likely discharge home within next 24 hours
Anticipated Discharge: Within 24 hours
Subjective/Interval History
-
Date of Service: December 30, 2024
Seen and examined at the bedside. No acute events reported overnight. AFVSS this morning
Memory is improved, patient states he recalls events prior and after his cold plunge yesterday though that time is still not clear to him
Denies any new complaints today. Friends at the bedside and updated.
Objective Data
-
Labs:
Laboratory Results
12/30/24
07:10
WBC 5.6
Hgb 14.5
Hct 42.0
Plt Count 197
Sodium 140
Potassium 4.4
Chloride 104
Carbon Dioxide 28
BUN 13
Creatinine 0.9
Glucose 96
Calcium 9.3
Vital Signs:
Vital Signs
Temp Pulse Resp BP Pulse Ox
98.0 F 76 18 126/69 96
12/30/24 11:00 12/30/24 11:00 12/30/24 11:00 12/30/24 11:00 12/30/24 11:00
I&O
12/29/24 12/30/24 12/31/24
06:59 06:59 06:59
Intake Total 480 / 480
Balance 480 / 480
Review of Systems
-
History Source: Patient
All other systems: Reviewed and negative
Physical Exam
-
General: Well Developed, Well Nourished and No Apparent Distress
HEENT: Normocephalic, Atraumatic, Moist Mucous Membranes and Anicteric
Respiratory: Clear to Auscultation, Non Labored Respirations and Accessory Resp Muscle Use
Cardiac: Regular Rhythm and S1/S2; Negative Murmur, Rub or Gallop
GI: Soft, Nontender, Nondistended and Normal Bowel Sounds
Musculoskeletal: No Clubbing, No Cyanosis and No Edema
Skin: Warm and Dry; Negative Rash
Neuro: AO x 3, Nonfocal/Grossly Intact and Central Nerve's Intact
Psych: Calm
Data Reviewed
-
Medical Tests (Nuc Med, Echo etc): Discussed with Physician (Neurologist)
Labs: Labs Reviewed by me, Discussed with Patient and Discussed with Family
--- NOTE | 2024-12-30 15:05 | W.PN.NEURO.1 ---
Today's Communication / Plan
-
.
Subjective/Objective
Subjective Data
Date of Service: December 30, 2024
Neurology follow-up note
Mr. Sheridan reports feeling back to himself since yesterday afternoon or evening, approximately since 9 am late yesterday morning. He also mentions experiencing some after-effects of tension on the left side that he has reported to other
doctors, clarifying that this is not a headache but something he finds difficult to describe. When asked about seizures, the patient believes this may have referred to his daughter who had petit mal seizures, or possibly his son, when they were
around 4 years old, noting that his daughter is now 19. He mentions that the family ultimately concluded the childhood episodes were behavioral rather than epileptic seizures.
Brain MRI�no acute abnormalities
Labs: Normal TSH, vitamin B12
PMH: Thyroid papillary carcinoma, DLP, ROME, bruxism, RLS, allergic rhinitis, KORI, vitamin D deficiency
PSH: Thyroidectomy, tonsillectomy, septoplasty, turbinectomy
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
FH: Not contributory to current presentation
All:NKDA
ROS: Cardiovascular: Negative for chest pain.
Gastrointestinal: Positive for bloating.
Neurological: Negative for headache. Positive for left-sided tension sensation.
General: Well developed. In no acute distress.
Cardio: Regular rate and rhythm without murmur. Extremities are without cyanosis or edema.
Neuro:
Mental Status: Alert, oriented to person, location, time. Normal attention and processing time. Follows complex requests. Nonfluent. Immediate delayed recall�3 out of 3
Cranial Nerves: Pupils are equally round and reactive to light. EOMs full. Visual bowling full to confrontation. No ptosis. No nystagmus. V1-V3 intact to light touch and pinprick bilaterally, symmetric. Face symmetric. Normal hearing AU. The
palate elevated well. SCMs and traps 5/5. Tongue midline. No dysarthria.
Motor: Normal bulk and tone. No pronator or arm drift. Strength 5/5 throughout. No clonus.
Reflexes: 2+ throughout the upper extremities and knees. 2/2 in AJs. Plantar responses flexor bilaterally.
Sensory: Normal pinprick, vibration and JPS.
Coordination: No dysmetria or tremor.
Gait: deferred
Assessment and Plan:
I. Transient encephalopathy.
II. Papillary thyroid carcinoma
III. ROME
- Seizure precautions
- Outpatient EEG
- Outpatient neurology and psychiatry follow-up.
I personally reviewed all radiology and labs along with past medical records pertinent to current medical problems. Total time spent in patient care is 60 minutes.
Thank you for allowing us to participate in the care of this patient. Please do not hesitate to contact us with any questions or concerns.
Objective Data
Vital Signs
Temp Pulse Resp BP Pulse Ox
36.7 C 76 18 126/69 96
12/30/24 11:00 12/30/24 11:00 12/30/24 11:00 12/30/24 11:00 12/30/24 11:00
Lab Results
12/30/24 07:10
12/30/24 07:10
Sodium 140 mmol/L (135-145) 12/30/24 07:10
Potassium 4.4 mmol/L (3.5-5.1) 12/30/24 07:10
BUN 13 mg/dl (9-20) 12/30/24 07:10
Glucose 96 mg/dl (70-99) 12/30/24 07:10
Calcium 9.3 mg/dl (8.4-10.2) 12/30/24 07:10
Vitamin B12 652 pg/ml (239-931) 12/29/24 09:48
Ur Buprenorphine Negative (Negative) 12/29/24 11:51
Patient Allergies
grass pollen Allergy (Verified 08/28/24 09:01)
congestion
house dust mite Allergy (Verified 08/28/24 09:01)
congestion
mold Allergy (Verified 08/28/24 09:01)
congestion
pollen extracts Allergy (Verified 08/28/24 09:01)
congestion
Vital Signs and Labs
-
Vital Signs and Labs:
Vital Signs
Temp Pulse Resp BP Pulse Ox
36.7 C 76 18 126/69 96
12/30/24 11:00 12/30/24 11:00 12/30/24 11:00 12/30/24 11:00 12/30/24 11:00
Lab Results
12/30/24 07:10
12/30/24 07:10
Sodium 140 mmol/L (135-145) 12/30/24 07:10
Potassium 4.4 mmol/L (3.5-5.1) 12/30/24 07:10
BUN 13 mg/dl (9-20) 12/30/24 07:10
Glucose 96 mg/dl (70-99) 12/30/24 07:10
Calcium 9.3 mg/dl (8.4-10.2) 12/30/24 07:10
Vitamin B12 652 pg/ml (239-931) 12/29/24 09:48
Ur Buprenorphine Negative (Negative) 12/29/24 11:51
Medications
-
Medications:
Generic Name Dose Route Start Last Admin
Trade Name Freq PRN Reason Stop Dose Admin
Acetaminophen 650 mg 12/29/24 16:47
Acetaminophen 325 Mg Tablet PO 01/26/25 16:46
Q4HPRN PRN
mild pain/GODDARD/temp> 100.4F
Bisacodyl 10 mg 12/29/24 16:47
Bisacodyl 10 Mg Rectal Suppository RECTAL 01/26/25 16:46
[id number] PRN
constipation
Cholecalciferol 125 mcg 12/29/24 18:00 12/29/24 17:25
Cholecalciferol (Vitamin D3) 125 Mcg Tablet (5,000 Units) PO 01/26/25 17:59 125 mcg
QPM ALFRED Administration
Escitalopram Oxalate 10 mg 12/29/24 22:00 12/29/24 21:34
Escitalopram 10 Mg Tablet PO 01/26/25 21:59 10 mg
HS ALFRED Administration
Famotidine 20 mg 12/29/24 22:00 12/29/24 21:34
Famotidine 20 Mg Tablet PO 01/26/25 21:59 20 mg
HS ALFRED Administration
Guaifenesin 100 mg 12/30/24 03:12 12/30/24 03:26
Guaifenesin Oral Solution (200 Mg/10 Ml) Cup PO 01/27/25 03:11 100 mg
Q4HPRN PRN Administration
cough
Levothyroxine Sodium 137 mcg 12/30/24 06:00 12/30/24 06:13
Levothyroxine 137 Mcg Tablet PO 01/27/25 05:59 137 mcg
DAILY @ 0600 ALFRED Administration
Lorazepam 0.5 mg 12/29/24 16:47
Lorazepam 0.5 Mg Tablet PO 01/26/25 16:46
Q4HPRN PRN
anxiety
Polyethylene Glycol 17 grams 12/29/24 16:47
Polyethylene Glycol Powder 17 Grams Packet PO 01/26/25 16:46
DAILYPRN PRN
constipation
Pravastatin Sodium 40 mg 12/29/24 22:00 12/29/24 21:34
Pravastatin 40 Mg Tablet PO 01/26/25 21:59 40 mg
HS ALFRED Administration
Senna/Docusate Sodium 1 tablet 12/29/24 16:47
Docusate W/Senna (Kay-Colace) Tablet PO 01/26/25 16:46
BIDPRN PRN
constipation
Sodium Chloride 0 flush 12/29/24 18:00
Sodium Chloride 0.9% (Flush) Syringe IV 01/26/25 17:59
PER PROTOCOL ALFRED
Home Medications
-
Home Medications
cholecalciferol (vitamin D3) 125 mcg (5,000 unit) tablet 1,000 unit PO QPM 06/21/12
pravastatin 40 mg tablet 40 mg PO HS 06/21/12
escitalopram oxalate 10 mg tablet (Lexapro) 10 mg PO HS 12/29/24
famotidine 20 mg tablet (Pepcid) 20 mg PO HS 12/29/24
levothyroxine 137 mcg tablet (Synthroid) 137 mcg PO DAILY 12/29/24
[2024-12-30 15:16] VITALS: BP 111/70
[2024-12-30] MEDS: FLUZONE (6 mos+) 2025-2026 FORMULA 0.5 ML IM (15:18)
== END 2024-12-30 15:24 | disposition home or self-care (01) | DRG 72 ==
LOC: 3 WEST ACU 15:34
PROVIDERS: Nurse Practitioner; ADMITTING PHYSICIAN Internal Medicine; CONSULT PHYSICIAN Psychiatry & Neurology Neurology; CONSULT PHYSICIAN Psychiatry & Neurology Psychiatry; EMERGENCY PHYSICIAN Emergency Medicine; FAMILY PHYSICIAN Internal Medicine
PROC: 3E02340 Introduction of Influenza Vaccine into Muscle, Percutaneous Approach (ICD-10-PCS; 2024-12-30)
DX: G45.4 Transient global amnesia (principal); E03.2 Hypothyroidism due to medicaments and other exogenous substances; G47.33 Obstructive sleep apnea (adult) (pediatric); K21.9 Gastro-esophageal reflux disease without esophagitis; F41.9 Anxiety disorder, unspecified; T69.9XXA Effect of reduced temperature, unspecified, initial encounter; Z87.891 Personal history of nicotine dependence; X31.XXXA Exposure to excessive natural cold, initial encounter; Z85.850 Personal history of malignant neoplasm of thyroid; Z23 Encounter for immunization
CPT/HCPCS: 70450; 70551; 80048; 80053; 80306; 81003; 81015; 82607; 82962; 83735; 84443; 85025; 90656; 93005; 96360; 99285; G0008

== ENCOUNTER → 2024-12-31 06:00 | Outpatient (REF) | payer BC, SELFPAY ==
[2024-12-31] MEDS: THYROGEN 1 MG IM (08:21)
--- NOTE | 2024-12-31 08:27 | PTCARENOTE ---
Patient arrival to IR department 0730. Awaiting pharmacy delivery of thyrogen. Thyrogen delivered at 0819. IM thyrogen injection given at 0821 right ventrogluteal. Bandaid to site.
== END ==
LOC: RAD 06:00
PROVIDERS: ATTENDING PHYSICIAN Internal Medicine Endocrinology, Diabetes & Metabolism
DX: C73 Malignant neoplasm of thyroid gland (principal)
CPT/HCPCS: 96372; J3240

== ENCOUNTER → 2025-01-01 06:00 | Outpatient (REF) | payer BC, SELFPAY ==
[2025-01-01] MEDS: THYROGEN 1 MG IM (08:28)
== END ==
LOC: RAD 06:00
PROVIDERS: ATTENDING PHYSICIAN Internal Medicine Endocrinology, Diabetes & Metabolism
DX: C73 Malignant neoplasm of thyroid gland (principal)
CPT/HCPCS: 96372; J3240